=== PATIENT | female | born 1960 | race Caucasian/White ===

== ENCOUNTER 2017-02-26 06:22 | Observation (INO) | payer OTHER ==
[~2017-02-26] VITALS: Ht 170.2 cm; Wt 103.0 kg
[~2017-02-26 06:22] MED LIST: CELE20TA PO; CYCL1TAB29 PO; IMIT100T PO; LEVO137T2 PO; ROPI1TAB72 PO; XANA1TAB2 PO
[2017-02-26] MEDS ORDERED: POVIDONE IODINE 5% (ANTISEPSIS KIT) 4 APPLICATIONS EACH NARE PRN (07:00)
[2017-02-26] MEDS ORDERED: INSULIN HUMAN REGULAR 1,000 UNITS/10 ML VIAL SQ PRN (07:00)
[2017-02-26] MEDS ORDERED: METOPROLOL TARTRATE 25 MG TAB PO PRN (07:00)
[2017-02-26] MEDS ORDERED: SODIUM CHLORID 0.9% 500 ML IV PRN (07:00)
[2017-02-26] MEDS ORDERED: SODIUM CHLOR 0.9% 1000 ML INJ 1,000 ML IV SCH (07:00)
[2017-02-26] MEDS ORDERED: CHLORHEXIDINE GLUCONATE 2 % 1 PACK (2 CLOTHS) TOPICAL PRN (07:00)
[2017-02-26] MEDS ORDERED: LACTATED RINGER'S 1000 ML IV PRN (07:00)
[2017-02-26 07:01] VITALS: BP 122/78; PULSE 78; RESP 20; TEMP 98; O2SAT 100
[2017-02-26] MEDS: VANCOMYCIN HCL 1000 MG ON-CALL/NS 250 ML IV SCH ×4 (07:15→07:25)
[2017-02-26] MEDS ORDERED: THROMBIN (TOPICAL) 5,000 UNIT VIAL ONE (07:22)
[2017-02-26] MEDS ORDERED: GELFOAM SIZE 100 ONE (07:22)
[2017-02-26] MEDS ORDERED: MICROFIBRILLAR COLLAGEN HEMOSTAT 70 X 35 MM BANDAGE ONE (07:22)
[2017-02-26] MEDS ORDERED: ceFAZolin 2 GM PREMIX 50 ML ONE (07:22)
[2017-02-26] MEDS ORDERED: GENTAMICIN SULFATE 80 MG/2 ML VIAL ONE (07:23)
[2017-02-26] MEDS ORDERED: ACETAMINOPHEN 1000 MG/100 ML VIAL IV ONE (08:05)
[2017-02-26] MEDS ORDERED: ARTIFICIAL TEARS OPTH OINT 3.5 APPLIC/3.5 GM TUBO ONE (08:05)
[2017-02-26] MEDS ORDERED: FAMOTIDINE 20 MG/2 ML VIAL ONE (08:05)
[2017-02-26] MEDS ORDERED: fentaNYL CITRATE 250 MCG/5 ML AMP ONE (08:06)
[2017-02-26] MEDS ORDERED: MIDAZOLAM HCL 2 MG/2 ML VIAL ONE ×2 (08:06→08:32)
[2017-02-26] MEDS ORDERED: NEOSTIGMINE 3 MG/3 ML SYR IV ONE (12:00)
[2017-02-26] MEDS ORDERED: LACTATED RINGER'S 1000 ML INJ 1,000 ML IV ONE (12:00)
[2017-02-26] MEDS ORDERED: ONDANSETRON HCL 4 MG/2 ML VIAL IV PUSH ONE (12:00)
[2017-02-26] MEDS ORDERED: ePHEDrine/NS 25 MG/5 ML SYR IV ONE (12:00)
[2017-02-26] MEDS ORDERED: PROPOFOL 200 MG/20 ML AMP IV ONE (12:00)
[2017-02-26] MEDS ORDERED: DO NOT ADM ANY ANTICOAGULANT DRUGS PRN (12:15)
[2017-02-26] MEDS: NS + KCL 20 MEQ INJ 1,000 ML IV SCH ×2 (12:18→20:29)
[2017-02-26] MEDS ORDERED: HYDR-3535 PO (12:25)
[2017-02-26] MEDS ORDERED: SODIUM CHLORIDE 0.9% FLUSH 5 ML FLUSH IVF PRN (12:30)
[2017-02-26] MEDS ORDERED: MORPHINE SULFATE 4 MG/ML INJ IV PUSH PRN ×2 (12:30)
[2017-02-26] MEDS ORDERED: ACETAMINOPHEN/HYDROcodone 325 MG/10 MG TAB PO PRN (12:30)
[2017-02-26] MEDS ORDERED: LORazepam 2 MG/ML VIAL IVP PRN (12:30)
[2017-02-26] MEDS ORDERED: SUMAtriptan SUCCINATE 50 MG TAB PO PRN (12:30)
[2017-02-26] MEDS ORDERED: ACETAMINOPHEN 325 MG TAB PO PRN (12:30)
[2017-02-26] MEDS ORDERED: *HYDROmorphone PF 1 MG VIAL PERIprocedural Use ONLY ONE ×2 (12:52→13:07)
[2017-02-26] MEDS: DEXAMETHASONE SOD PHOS 4 MG/ML VIAL IV PUSH SCH ×3 (13:00→22:55)
--- NOTE | 2017-02-26 13:26 | PD.OP ---
Operative Report Date of Surgery: February 26, 2017 Preoperative Diagnosis: C3-4 cervical disk herniation Postoperative Diagnosis: C3-4 cervical disk herniation Procedure: C3-C4 Anterior cervical discectomy and arhtoplasty with Mobi C Anesthesia: General Surgeon: Jj Hernandez Highway Safety Engineer(s): Orin Birch Operation and Findings: INDICATIONS FOR THE SURGERY Ms Vee is a 56 year-old female who presented with intractable neck pain and clinical evidence of C7 cervical radiculopathy. She was found to have focal stenosis with a C6-7 causing significant mass effect on the nerve roots. She failed multiple modalities of nonsurgical treatment including physical therapy, analgesics, antiinflammatories, and pain management with multiple epidural steroid injections. The severity of her pain and symptoms were affecting her quality of life. An anterior cervical discectomy and arthroplasty were indicated. The [id number] details of the surgical procedure, indications, alternatives, risks and potential complications were fully discussed with the patient. The patient fully understood. All his questions were answered. No guarantees were given. She voiced requesting the procedure and signed informed consents. She was offered the alternative of delaying the procedure and continuing with nonsurgical management. DETAILS OF THE SURGICAL PROCEDURE SURGICAL APPROACH A skin incision was made along the middle cervical crease on the left side with a #10 blade. The dissection was carried out through the platysma exposing the sternocleidomastoid muscle. The cervical spine was approached following the fascial layers of the neck, just medial to the anterior border of the sternocleidomastoid and carotid sheath by a combination of sharp and dull dissection. The omohyoid muscle was identified and carefully dissected laterally and the deep cervical fascia was carefully opened. The longus colli muscles were retracted to each side of the midline. A marker was placed at the C3-C4 disc space and a cross-table lateral x-ray performed with a C-arm. An AP xray was then obtained as well, and the midline of the disk space was defined. SURGICAL DECOMPRESSION In order to decompress the anterior surface of the spinal cord it was necessary to perform a microsurgical resection of the disk. At this point in the procedure the operating microscope was draped in the usual sterile fashion and brought to the field. The rest of the surgical procedure was performed using microdissection technique with the exception of the closure. Under the operative microscopic a self-retaining retractor was placed underneath the longus colli muscle. The annulus was incised with a #15 blade and microdiscectomy was then carefully carried out using angled curets and pituitary forceps. The patient had a large right disk extrusion which was producing mass affect on the exiting nerve root. This was carefully dissected with a nerve hock and resected with a think foot plate 2 mm Kerrison under high magnification. The posterior longitudinal ligament was then elevated with an angled curet and incised with a 15 bladed knife. A careful resection of the posterior longitudinal ligament was carried out using a thin footplate 2 mm Kerrison. Extruded disk fragments were causing mechanical compression over the exiting C6 nerve root were carefully dissected. The decompression was then carried out laterally, and a bilateral foraminotomy was performed with a 2 mm thin foot Kerrison. The epidural space was the systematically assessed with a nerve hook in search for disk fragments of scar tissue. An excellent decompression was achieved in both, the dural sac and bilateral exiting nerve roots. The incision was then irrigated with a large amount of antibiotic solution INTERBODY ARTHROPLASTY In order to avoid collapse of the disk space which would result in bilateral foraminal stenosis, and in order to maintain disk space height and function minimally development of adjacent level degeneration, it was necessary to place an interbody device. At this point of the procedure, gentle distraction was applied. The size of the interbody device was then assessed using a trial, and a cross table xray was done for confirmation of appropriate size and position of the device. Then the disk space was irrigated with antibiotic solution, and a 15mm by 6mm Mobi C artificial disk was carefully impacted into the disc space C3-C4. An excellent position of the device was achieved. This was confirmed anatomically by feeling the space posterior to the implant and distance to the anterior surface of the dural sac. Radiological confirmation of the position was performed with a cross table AP and lateral X-ray views, performed with the C-arm. COMPLETION OF THE SURGICAL PROCEDURE Once that each interbody device was in an appropriate position, the distraction was discontinued. The position of the device as well as alignment of the spine were assessed anatomically by direct visualization, and radiologically by performing an AP and lateral X-ray of the cervical spine with the C-arm. The position of the implant was excellent. The incision was irrigated with several liters of antibiotic solution. Hemostasis was achieved with a bipolar. A 7 mm Micky-Gonzalez drain was left in the prevertebral space and externalized through a separate stab incision. The incision was then closed in layers. 3-0 Vicryl with interrupted sutures was used to close the platysma and subcutaneous tissue. The skin was closed with 4- 0 running subcuticular Vicryl and Dermabond was applied to the skin. The drain was secured with a 3-0 nylon. At the end of the procedure the sponge, needle and instrument counts were all correct. The estimated blood loss was less than 30 cc. No blood transfusion was given. No intraoperative complications occurred. The patient received prophylactic antibiotics. The patient was then extubated and transferred to the recovery room in stable condition. Jj Hernandez MD February 26, 2017 13:26
[2017-02-26 14:20] VITALS: BP 120/67; PULSE 95; RESP 16; TEMP 96; O2SAT 97
[2017-02-26] MEDS: CYCLOBENZAPRINE HCL 10 MG TAB PO SCH ×2 (14:25→17:48)
[2017-02-26] MEDS: ACETAMINOPHEN/HYDROcodone 325 MG/10 MG TAB PO PRN ×2 (14:26→17:49)
[2017-02-26] MEDS: ceFAZolin 2 GM PREMIX 50 ML IV SCH (15:45)
[2017-02-26 16:00] VITALS: BP 126/70; PULSE 91; RESP 18; TEMP 96.4; O2SAT 96
--- NOTE | 2017-02-26 17:08 | RADRPT ---
EXAM DATE/TIME: 02/26/2017 09:51 [facility] COMPARISON: No previous studies available for comparison. INDICATIONS : Artificial disk C3,C4. MEDICAL HISTORY : None. SURGICAL HISTORY : Fusion, cervical. ENCOUNTER: Initial ACUITY: 1 day PAIN SCORE: Non-responsive. LOCATION: Cervical spine. FINDINGS: Artificial disc is present at C3-C4 in anatomic alignment. There is previous fusion at C5-C6. CONCLUSION: 1. Postsurgical changes as above. Ellis Bunn MD on February 26, 2017 at 17:03 Board Certified Radiologist. This report was verified electronically.
[2017-02-26] MEDS: DOCUSATE SODIUM 100 MG CAP PO SCH (20:26)
[2017-02-26] MEDS: ONDANSETRON HCL 4 MG/2 ML VIAL IV PUSH PRN (20:27)
[2017-02-26] MEDS: HYDROmorphone HCL PF 1 MG/ML VIAL IV PRN ×2 (20:27→22:54)
[2017-02-26 20:50] VITALS: BP 117/83; PULSE 64; RESP 17; TEMP 97; O2SAT 94
[2017-02-26] MEDS ORDERED: ALPRAZolam 1 MG TAB PO SCH (21:00)
[2017-02-26] MEDS: SODIUM CHLORIDE 0.9% FLUSH 5 ML FLUSH IVF SCH (21:00)
[2017-02-26 23:50] VITALS: BP 117/77; PULSE 76; RESP 16; TEMP 96.6; O2SAT 92
[2017-02-27] MEDS: HYDROmorphone HCL PF 1 MG/ML VIAL IV PRN ×3 (00:57→06:10)
[2017-02-27] MEDS: ceFAZolin 2 GM PREMIX 50 ML IV SCH ×2 (00:57→08:56)
[2017-02-27] MEDS: ONDANSETRON HCL 4 MG/2 ML VIAL IV PUSH PRN (03:32)
[2017-02-27 04:30] VITALS: BP 130/87; PULSE 75; RESP 16; TEMP 98.1; O2SAT 98
[2017-02-27] MEDS ORDERED: LEVOTHYROXINE SODIUM 112 MCG TAB PO SCH (06:00)
[2017-02-27] MEDS ORDERED: LEVOTHYROXINE SODIUM 25 MCG TAB PO SCH (06:00)
[2017-02-27] MEDS: DEXAMETHASONE SOD PHOS 4 MG/ML VIAL IV PUSH SCH ×2 (06:10→12:18)
[2017-02-27 08:00] VITALS: BP 121/79; PULSE 90; RESP 18; TEMP 97.6; O2SAT 94
[2017-02-27] MEDS: DOCUSATE SODIUM 100 MG CAP PO SCH (08:55)
[2017-02-27] MEDS: ACETAMINOPHEN/HYDROcodone 325 MG/10 MG TAB PO PRN (08:55)
[2017-02-27] MEDS: CYCLOBENZAPRINE HCL 10 MG TAB PO SCH ×2 (08:56→12:18)
[2017-02-27] MEDS: SODIUM CHLORIDE 0.9% FLUSH 5 ML FLUSH IVF SCH (08:57)
[2017-02-27] MEDS: NS + KCL 20 MEQ INJ 1,000 ML IV SCH (08:58)
[2017-02-27] MEDS ORDERED: NON-FORMULARY DRUG (Levothyroxine 137 MCG) PO SCH (09:00)
[2017-02-27] MEDS ORDERED: SUMAtriptan SUCCINATE 50 MG TAB PO ONE (09:00)
[2017-02-27] MEDS ORDERED: PANTOPRAZOLE SOD 40 MG DELAYED RELEASE TAB PO SCH (09:00)
[2017-02-27] MEDS ORDERED: CITALOPRAM HYDROBROMIDE 20 MG TAB PO SCH (09:00)
--- NOTE | 2017-02-27 09:29 | HHI.DS ---
Discharge Summary Admission Date February 26, 2017 at 12:21 Discharge Date: February 27, 2017 Admitting Diagnosis hnp (1) Status post cervical arthrodesis ICD Code: Z98.1 Procedures arthroplasty Brief History elective arthroplasty, no complications Hospital Course Pt recovered without complications Pt Condition on Discharge: Good Discharge Disposition: Discharge Home Discharge Instructions DIET: Follow Instructions for: As Tolerated, No Restrictions Speech Therapy-Diet Recommenda: Mechanical Soft ADDITIONAL Diet Instructions: no ACTIVITIES You can perform: Weight Bearing As Ajay Activities to Avoid: Lifting/Bending Jj Hernandez MD February 27, 2017 09:29
--- NOTE | 2017-02-27 09:31 | HHI.NSPN ---
Note Status Status: Progress Note Interval History Diagnosis ARthroplasty Interval History 02/27. Doing well, S?P arthroplasty. doing well Labs, Micro, & Vital Signs Results Date Time Temp Pulse Resp B/P Pulse Ox O2 Delivery O2 Flow Rate FiO2 02/27/17 04:30 98.1 75 16 130/87 98 02/27/17 04:00 Nasal Cannula 2.00 02/27/17 00:00 Nasal Cannula 2.00 02/26/17 23:50 96.6 76 16 117/77 92 02/26/17 20:50 97.0 64 17 117/83 94 02/26/17 20:00 Nasal Cannula 2.00 02/26/17 16:00 96.4 91 18 126/70 96 02/26/17 14:20 96.0 95 16 120/67 97 02/26/17 14:10 Nasal Cannula 2.00 02/26/17 13:52 97.7 92 20 143/76 98 Nasal Cannula 2 02/26/17 13:45 92 20 143/76 98 Nasal Cannula 2 02/26/17 13:30 89 20 146/80 98 Nasal Cannula 2 02/26/17 13:15 86 20 143/79 99 Nasal Cannula 2 02/26/17 13:00 92 20 143/82 99 Nasal Cannula 2 02/26/17 12:45 87 20 152/85 99 Nasal Cannula 2 02/26/17 12:30 87 20 153/87 99 Nasal Cannula 2 02/26/17 12:15 88 20 152/85 99 Nasal Cannula 2 02/26/17 11:56 98.1 94 20 145/87 98 Nasal Cannula 2 02/27/17 07:00 Intake Total 4210 ml Output Total 1320 ml Balance 2890 ml Constitutional Vital Signs Date Time Temp Pulse Resp B/P Pulse Ox O2 Delivery O2 Flow Rate FiO2 02/27/17 04:30 98.1 75 16 130/87 98 02/27/17 04:00 Nasal Cannula 2.00 02/27/17 00:00 Nasal Cannula 2.00 02/26/17 23:50 96.6 76 16 117/77 92 02/26/17 20:50 97.0 64 17 117/83 94 02/26/17 20:00 Nasal Cannula 2.00 02/26/17 16:00 96.4 91 18 126/70 96 02/26/17 14:20 96.0 95 16 120/67 97 02/26/17 14:10 Nasal Cannula 2.00 02/26/17 13:52 97.7 92 20 143/76 98 Nasal Cannula 2 02/26/17 13:45 92 20 143/76 98 Nasal Cannula 2 02/26/17 13:30 89 20 146/80 98 Nasal Cannula 2 02/26/17 13:15 86 20 143/79 99 Nasal Cannula 2 02/26/17 13:00 92 20 143/82 99 Nasal Cannula 2 02/26/17 12:45 87 20 152/85 99 Nasal Cannula 2 02/26/17 12:30 87 20 153/87 99 Nasal Cannula 2 02/26/17 12:15 88 20 152/85 99 Nasal Cannula 2 02/26/17 11:56 98.1 94 20 145/87 98 Nasal Cannula 2 02/27/17 07:00 Intake Total 4210 ml Output Total 1320 ml Balance 2890 ml Review of Systems/Exam Exam She is alert, awake and oriented to time, place and person. Speech is fluent. Cranial nerve examination: pupils to be equal, round and reactive to light. Extra-ocular movements are intact. Facial motor and sensory function are normal and symmetrical. Gross hearing appears intact. Sternocleidomastoid and trapezius muscles are symmetrical. Other cranial nerves are intact. Neck is soft on [place] collar Muscle strength is normal in all muscle groups of both upper and lower extremities. Sensory examination is intact to light touch and pin prick in both the upper and lower extremities. Deep tendon reflexes are symmetrical in both upper and lower extremities. There is a bilateral plantar flexion response. Cerebellar examination is unremarkable, without deficits. Medications Current Medications Current Medications Lactated Ringer's 1,000 ml @ 30 mls/hr Q24H PRN IV SEE LABEL COMMENTS Last administered on 02/26/17t 07:07; Start 02/26/17 at 07:00; Stop 02/26/17 at 12:31 ; Status DC Sodium Chloride (NS 500 ml Inj) 500 ml @ 30 mls/hr [id number] PRN IV SEE LABEL COMMENTS; Start 02/26/17 at 07:00; Stop 02/26/17 at 12:31; Status DC Metoprolol Tartrate (Lopressor) 25 mg CDL INSTRUCTOR PRN PO SEE LABEL COMMENTS; Start 02/26/17 at 07:00; Stop 02/27/17 at 14:19; Status DC Povidone Iodine (Betadine 5% Antisepsis Kit) 1 applic CDL INSTRUCTOR PRN EACH NARE SEE LABEL COMMENTS Last administered on 02/26/17 07:07; Start 02/26/17 at 07:00 ; Stop 02/27/17 at 14:19; Status DC Chlorhexidine Gluconate (Chlorhexidine 2% Cloth) 3 pack CDL INSTRUCTOR PRN TOPICAL SEE LABEL COMMENTS; Start 02/26/17 at 07:00; Stop 02/27/17 at 14:19; Status DC Insulin Human Regular See Protocol Table ... CDL INSTRUCTOR PRN SQ SEE PROTOCOL TABLE ; Start 02/26/17 at 07:00; Stop 02/27/17 at 14:19; Status DC Sodium Chloride 1,000 ml @ 30 mls/hr Q24H IV ; Start 02/26/17 at 07:00; Stop at 12:31; Status DC Vancomycin HCl/ Sodium Chloride (Vancomycin Inj/ NS 250 ml Inj) 250 ml @ 250 mls/hr CDL INSTRUCTOR IV Last administered on 02/26/17 07:15; Start 02/26/17 at 07: 00; Stop 02/26/17 at 12:33; Status DC Microfibriller Collagen Hemostat (Avitene Bandage) 1 bandage STK-MED ONCE .ROUTE Last administered on 02/26/17 10:25; Start 02/26/17 at 07:22; Stop at 07:23; Status DC Thrombin 12862 units 10,000 units STK-MED ONCE .ROUTE Last administered on 02/26 10:25; Start 02/26/17 at 07:22; Stop 02/26/17 at 07:23; Status DC Cefazolin Sodium/ Dextrose (Ancef 2 Gm Premix) 50 ml @ As Directed STK-MED ONCE .ROUTE Last administered on 02/26/17 09:14; Start 02/26/17 at 07:22; Stop at 07:23; Status DC Gelatin (Gelfoam 100 Top) 1 foam STK-MED ONCE .ROUTE Last administered on 10:24; Start 02/26/17 at 07:22; Stop 02/26/17 at 07:23; Status DC Gentamicin Sulfate (Gentamicin Inj) 240 mg STK-MED ONCE .ROUTE Last administered on 02/26/17 10:24; Start 02/26/17 at 07:23; Stop 02/26/17 at 07:24 ; Status DC Acetaminophen (Ofirmev Inj) 1,000 mg STK-MED ONCE IV ; Start 02/26/17 at 08:05; Stop 02/26/17 at 08:06; Status DC Artificial Tears (Lacrilube Opht Oint) 3.5 applic STK-MED ONCE .ROUTE ; Start at 08:05; Stop 02/26/17 at 08:06; Status DC Famotidine (Pepcid Inj) 20 mg STK-MED ONCE .ROUTE ; Start 02/26/17 at 08:05; Stop 02/26/17 at 08:06; Status DC Midazolam HCl (Versed Inj) 4 mg STK-MED ONCE .ROUTE ; Start 02/26/17 at 08:06; Stop 02/26/17 at 08:07; Status DC Fentanyl Citrate (fentaNYL INJ) 500 mcg STK-MED ONCE .ROUTE ; Start 02/26/17 at 08:06; Stop 02/26/17 at 08:07; Status DC Midazolam HCl (Versed Inj) 2 mg STK-MED ONCE .ROUTE ; Start 02/26/17 at 08:32; Stop 02/26/17 at 08:33; Status DC Miscellaneous Information ALL NURSING DEPARTME... UNSCH PRN .XX SEE LABEL COMMENTS; Start 02/26/17 at 12:15; Stop 02/27/17 at 12:14; Status DC Potassium Chloride/Sodium Chloride (NS + KCl 20 Meq Inj) 1,000 ml @ 100 mls/hr Q10H IV Last administered on 02/27/17 08:58; Start 02/26/17 at 12:18; Stop at 14:19; Status DC IV Flush (NS Flush) 2 ml UNSCH PRN IVF FLUSH AFTER USING IV ACCESS; Start 02/26 at 12:30; Stop 02/27/17 at 14:19; Status DC IV Flush 2 ml 2 ml BID IVF ; Start 02/26/17 at 21:00; Stop 02/27/17 at 14:19; Status DC Cefazolin Sodium/ Dextrose (Ancef 2 Gm Premix) 50 ml @ 100 mls/hr Q8H IV Last administered on 02/27/17 08:56; Start 02/26/17 at 17:00; Stop 02/27/17 at 09:29 ; Status DC Lorazepam (Ativan Inj) 1 mg Q1H PRN IVP anxiety/irritability; Start 02/26/17 at 12:30; Stop 02/27/17 at 14:19; Status DC Docusate Sodium (Colace) 100 mg BID PO Last administered on 02/27/17 08:55; Start 02/26/17 at 21:00; Stop 02/27/17 at 14:19; Status DC Pantoprazole Sodium (Protonix) 40 mg DAILY PO Last administered on 02/27/17 08 :55; Start 02/27/17 at 09:00; Stop 02/27/17 at 14:19; Status DC Acetaminophen/ Hydrocodone Bitart ([place] 10-325 Mg) 1 tab Q4H PRN PO PAIN SCALE 1 TO 5 Last administered on 02/27/17 08:55; Start 02/26/17 at 12:30; Stop 02/27/17 at 14:19; Status DC Acetaminophen/ Hydrocodone Bitart ([place] 10-325 Mg) 2 tab Q4H PRN PO PAIN SCALE 6 TO 10; Start 02/26/17 at 12:30; Stop 02/27/17 at 14:19; Status DC Morphine Sulfate (Morphine Inj) 2 mg Q2H PRN IV PUSH PAIN SCALE 1 TO 6; Start 02/26/17 at 12:30; Stop 02/27/17 at 14:19; Status DC Morphine Sulfate (Morphine Inj) 4 mg Q2H PRN IV PUSH PAIN SCALE 7 TO 10; Start 02/26/17 at 12:30; Stop 02/27/17 at 14:19; Status DC Acetaminophen (Tylenol) 650 mg Q4H PRN PO TEMPERATURE > 101.5 F; Start at 12:30; Stop 02/27/17 at 14:19; Status DC Dexamethasone Sodium Phosphate (Decadron Inj) 4 mg Q6HR IV PUSH Last administered on 02/27/17 12:18; Start 02/26/17 at 13:00; Stop 02/27/17 at 14:19 ; Status DC Alprazolam (Xanax) 1 mg HS PO Last administered on 02/26/17 20:27; Start 02/26 at 21:00; Stop 02/27/17 at 14:19; Status DC Citalopram Hydrobromide (CeleXA) 20 mg DAILY PO Last administered on 02/27/17 08:55; Start 02/27/17 at 09:00; Stop 02/27/17 at 14:19; Status DC Cyclobenzaprine HCl (Flexeril) 10 mg TID PO Last administered on 02/27/17 12: 18; Start 02/26/17 at 13:00; Stop 02/27/17 at 14:19; Status DC Ropinirole HCl (Requip) 1 mg QID PO Last administered on 02/27/17 12:18; Start 02/26/17 at 13:00; Stop 02/27/17 at 14:19; Status DC Sumatriptan Succinate (Imitrex) 100 mg ONCE PRN PO MIGRAINE HEADACHE; Start at 12:30; Stop 02/27/17 at 14:19; Status DC Non-Formulary Medication 137 mcg DAILY PO THY; Start 02/27/17 at 09:00; Status UNV Hydromorphone HCl (*DILAUDID PF INJ PERIprocedural ONLY) 1 mg STK-MED ONCE .ROUTE Last administered on 02/26/17 12:52; Start 02/26/17 at 12:52; Stop at 12:53; Status DC Levothyroxine Sodium (Synthroid) 112 mcg DAILY@06 PO Last administered on 06:08; Start 02/27/17 at 06:00; Stop 02/27/17 at 14:19; Status DC Levothyroxine Sodium (Synthroid) 25 mcg DAILY@06 PO Last administered on 06:08; Start 02/27/17 at 06:00; Stop 02/27/17 at 14:19; Status DC Hydromorphone HCl (*DILAUDID PF INJ PERIprocedural ONLY) 1 mg STK-MED ONCE .ROUTE Last administered on 02/26/17 13:07; Start 02/26/17 at 13:07; Stop at 13:08; Status DC Hydromorphone HCl (Dilaudid Pf Inj) 1 mg Q2H PRN IV PAIN Last administered on 06:10; Start 02/26/17 at 20:30; Stop 02/27/17 at 14:19; Status DC Ondansetron HCl (Zofran Inj) 4 mg Q6H PRN IV PUSH NAUSEA Last administered on 03:32; Start 02/26/17 at 20:30; Stop 02/27/17 at 14:19; Status DC Sumatriptan Succinate (Imitrex) 100 mg ONCE ONCE PO Last administered on 09:19; Start 02/27/17 at 09:00; Stop 02/27/17 at 09:03; Status DC Attending Statement She is doing well. No complications. No deficits. Will discharge home Jj Hernandez MD February 27, 2017 09:31
[2017-02-27 12:00] VITALS: BP 123/75; PULSE 89; RESP 18; TEMP 98.2; O2SAT 95
[2017-03-19] MEDS ORDERED: CYCL1TAB29 PO (12:25)
[2017-03-20] MEDS ORDERED: HYDR-3535 PO (14:52)
== END 2017-02-27 14:19 | disposition home or self-care (01) ==
LOC: HSDC 06:22 → HSDI 12:21 → N06B 14:34
PROVIDERS: ADMIT Neurological Surgery; ATTEND Neurological Surgery
DX: M50.10 Cervical disc disorder with radiculopathy, unspecified cervical region (principal); E03.9 Hypothyroidism, unspecified; F32.9 Major depressive disorder, single episode, unspecified; G25.81 Restless legs syndrome; Z88.0 Allergy status to penicillin; Z88.5 Allergy status to narcotic agent; Z88.1 Allergy status to other antibiotic agents
CPT/HCPCS: 22856; 72040; 76000; 94150; 97161; C1713; G0378; G8987; G8988; J0131; J0690; J1100; J1170; J1580; J2250; J2405; J2710; J3010; J3370; J3480; J7050; J7120; L0150; L0172

== ENCOUNTER 2017-12-04 04:07 | Emergency (ER) | payer OTHER ==
[~2017-12-04] VITALS: Ht 170.2 cm; Wt 100.0 kg
[~2017-12-04 04:07] MED LIST changes: +CYCL10TA PO; -CYCL1TAB29 PO; +HYDR-3535 PO; +ZANA4CAP PO
[2017-12-04 04:11] VITALS: BP 136/81; PULSE 69; RESP 18; TEMP 98; O2SAT 100
[2017-12-04] MEDS ORDERED: METH500T3 PO (04:30)
[2017-12-04] MEDS ORDERED: MELO7.5T27 PO (04:31)
[2017-12-04] MEDS ORDERED: ONDANSETRON HCL 4 MG/2 ML VIAL IV PUSH ONE (04:45)
[2017-12-04] MEDS ORDERED: HYDROmorphone HCL PF 1 MG/ML VIAL IV PUSH ONE (04:45)
[2017-12-04] MEDS ORDERED: SODIUM CHLORID 0.9% 500 ML INJ 500 ML IV ONE (04:45)
--- NOTE | 2017-12-04 04:52 | PD ---
HPI Chief Complaint: Back/ Neck Pain or Injury Time Seen by Provider: 04:36 Travel History International Travel<30 days: No Contact w/Intl Traveler<30days: No Traveled to known affect area: No History of Present Illness HPI The patient is a 57-year-old female who presents to the emergency department for low back pain. The patient states her back pain started 2 days ago, she thought she may have "pulled" her back. However, she tried to get up to go to the restroom earlier tonight and had difficulty walking. The pain is located lower aspect of the back, across the sacroiliac area radiating down the legs but stopping prior to the knee. She denies any weakness, numbness, or tingling of the lower extremities. She does have a history of herniated disc in the neck before with previous surgery by Dr. Hernandez. She does note mild urinary incontinence, however, this has been somewhat chronic is not acute. The patient's symptoms are moderate, there are no current alleviating or exacerbating factors. She does note a history of allergies to morphine with rash and states that Toradol has an interaction with her Requip, making her restless. Patient states she is able to take Demerol and Dilaudid for pain. PFSH Past Medical History Arthritis: Yes (BACK AND NECK) Blood Disorders: No Anxiety: Yes Depression: Yes ("MOOD SWINGS") Heart Rhythm Problems: No Cancer: No Cardiovascular Problems: No High Cholesterol: No Congestive Heart Failure: No Cerebrovascular Accident: No Diabetes: No Diminished Hearing: No Endocrine: Yes Gastrointestinal Disorders: Yes (GASTRIC BYPASS SX 2008) Glaucoma: No Genitourinary: No Hepatitis: No Hiatal Hernia: No Hypertension: No Immune Disorder: No Implanted Vascular Access Dvce: No Medical other: Yes Musculoskeletal: Yes (ARTHRITIS HIPS, LUMBAR SPINE, CERVICAL SPINE, FEET) Neurologic: Yes (NUMBNESS & BURNING ENTIRE RIGHT ARM INTO FINGERS INTERMITT) Psychiatric: Yes (DEPRESSION ) Reproductive: No Respiratory: No Seizures: No Thyroid Disease: Yes (HYPO) Tetanus Vaccination: < 5 Years Influenza Vaccination: Yes ?: Not Menopausal: Yes : 2 Para: 2 Tubal Ligation: Yes Past Surgical History Abdominal Surgery: Yes (GASTRIC BYPASS 2008) AICD: No Body Medical Devices: fussion to cervical Cardiac Surgery: No Ear Surgery: No Endocrine Surgery: No Eye Surgery: No Genitourinary Surgery: No Gynecologic Surgery: Yes (PARTIAL HYSTERECTOMY WITH CYSTOCELE & RECTOCELE 2009) Hysterectomy: Yes Joint Replacement: No Neurologic Surgery: Yes (01/28/15 C5-6, 6-7 fusion) Oral Surgery: Yes (WISDOM TEETH REMOVED) Pacemaker: No Thoracic Surgery: No Other Surgery: Yes (2014 C5-6, 6-7 fusion) Social History Alcohol Use: Yes (occasional) Tobacco Use: No Substance Use: No Allergies-Medications (Allergen,Severity, Reaction): Coded Allergies: ciprofloxacin (Unverified Allergy, Severe, UNKNOWN, 12/04/17) INCOMPATABLE WITH REQUIP penicillin G (Unverified Allergy, Severe, HIVES, 12/04/17) morphine (Unverified Allergy, Intermediate, Irritability/Anxiety, 12/04/17) Reported Meds & Prescriptions Reported Meds & Active Scripts Active Zanaflex (Tizanidine HCl) 4 Mg Cap 4 Mg PO TID Reported Meloxicam 7.5 Mg Tab 7.5 Mg PO DAILY Methocarbamol 500 Mg Tab 500 Mg PO HS Xanax (Alprazolam) 1 Mg Tab 1 Mg PO HS Celexa (Citalopram Hydrobromide) 20 Mg Tab 20 Mg PO DAILY Levothyroxine (Levothyroxine Sodium) 137 Mcg Tab 137 Mcg PO DAILY Requip (Ropinirole) 1 Mg Tab 1 Mg PO QID Imitrex (Sumatriptan Succinate) 100 Mg Tab 100 Mg PO ONCE PRN If a satisfactory response has not been obtained at 2 hours, a second dose may be administered Review of Systems Except as stated in HPI: all other systems reviewed are Neg General / Constitutional: No: Fever Cardiovascular: No: Chest Pain or Discomfort Respiratory: No: Shortness of Breath Gastrointestinal: No: Nausea, Vomiting Genitourinary: No: Dysuria Musculoskeletal: Positive: Pain, No: Weakness Neurologic: No: Paresthesia, Sensory Disturbance Physical Exam Narrative GENERAL: Awake, alert, pleasant 57-year-old female who appears her stated age and appears in moderate discomfort. SKIN: Focused skin assessment warm/dry. HEAD: Atraumatic. Normocephalic. EYES: No injection or drainage. Back: Tenderness of the sacroiliac bilaterally as well as mid lumbar spine. No obvious deformity. Pain elicited with rotation of the thorax. MUSCULOSKELETAL: No obvious deformities. No clubbing. No cyanosis. No edema. Plantar flexion bilaterals 5 over 5. Dorsi flexion is 5 out of 5. Extension of the knee is 5 out of 5. Flexion the hips is 5 out of 5 but exacerbates her pain. NEUROLOGICAL: Awake and alert. No obvious cranial nerve deficits. Motor grossly within normal limits. Normal speech. Sensation is intact to the lower extremities bilaterally. PSYCHIATRIC: Appropriate mood and affect; insight and judgment normal. Data Data Last Documented VS Vital Signs Date Time Temp Pulse Resp B/P (MAP) Pulse Ox O2 Delivery O2 Flow Rate FiO2 12/04/17 04:11 98.0 69 18 136/81 (99) 100 Orders Orders Dexamethasone Inj (Decadron Inj) (12/04/17 09:00) Ondansetron Inj (Zofran Inj) (12/04/17 04:45) Sodium Chlorid 0.9% 500 Ml Inj (Ns 500 M (12/04/17 04:45) Spine, Lumbar - Ltd (Ap & Lat) (12/04/17 ) Hydromorphone Pf Inj (Dilaudid Pf Inj) (12/04/17 05:15) Dexamethasone Inj (Decadron Inj) (12/04/17 05:15) MDM Medical Decision Making Medical Screen Exam Complete: Yes Emergency Medical Condition: Yes Medical Record Reviewed: Yes Interpretation(s) X-ray lumbar spine reveals moderate degenerative disc changes at the L5-S1 level. The study is otherwise unremarkable. Differential Diagnosis Differential diagnosis includes back pain, back strain, compression fracture, herniated disc, spinal stenosis, cauda equina syndrome, UTI, AAA. Narrative Course IV was established and the patient was administered Decadron, Dilaudid, and Zofran with IV fluids. Lumbar spine x-ray was ordered. X-ray reveals moderate degenerative disc changes at L5-S1 level, otherwise unremarkable. The patient was reevaluated, her symptoms have improved. Patient will be placed on Medrol Dosepak and Percocet. She is advised to stop Mobitz while on the Medrol Dosepak. Continue muscle relaxers as previously directed. Work excuse for 2 days. She is advised to follow-up with her primary physician. She will be provided a copy of her x-ray results at discharge. Diagnosis Primary Impression: Back pain Qualified Codes: M54.5 - Low back pain Patient Instructions: General Instructions, Narcotic given in the ED Additional Instructions: Please provide the patient a copy of her x-ray results at discharge. Work excuse for 2 days. Stop Mobic while on Medrol Dosepak. Continue muscle relaxers as previously directed. Return if symptoms worsen or progress. Med/Other Pt SpecificInfo: Prescription(s) given Scripts Oxycodone-Acetaminophen (Percocet) 5-325 mg Tab 1 TAB PO Q6H Y for PAIN, #15 TAB 0 Refills Prov: Martir Nava MD 12/04/17 Methylprednisolone Dosepak (Medrol Dosepak) 4 Mg Dspk 4 MG PO DIRECTED, #1 DSPK 0 Refills Per Pharmacist direction Prov: Martir Nava MD 12/04/17 Disposition: 01 DISCHARGE HOME Condition: Stable Martir Nava MD Dec 04, 2017 04:52
[2017-12-04] MEDS ORDERED: HYDROmorphone HCL PF 2 MG/ML VIAL IV PUSH ONE (05:15)
[2017-12-04] MEDS ORDERED: DEXAMETHASONE SOD PHOS 4 MG/ML VIAL IV PUSH ONE (05:15)
--- NOTE | 2017-12-04 05:31 | RADRPT ---
EXAM DATE/TIME: 12/04/2017 04:52 [place] COMPARISON: No previous studies available for comparison. INDICATIONS : Lower back pain from unknown injury. MEDICAL HISTORY : None. SURGICAL HISTORY : None. ENCOUNTER: Initial ACUITY: 1 day PAIN SCORE: 10/10 LOCATION: Bilateral lower back. FINDINGS: Two view examination was performed. There are five non-rib bearing vertebral bodies. The vertebral bodies are in normal alignment without evidence of subluxation or scoliosis. Degenerative disc change s are present at the L5-S1 level with disc space narrowing, sclerosis and mild spurring. The sacroili ac joints are symmetric and intact. The pedicles are intact. Bony mineralization is normal. No frac ture is identified. CONCLUSION: 1. Moderate degenerative disc change at the L5-S1 level. 2. The study is otherwise unremarkable. Soham Bush MD on December 04, 2017 at 5:29 Board Certified Radiologist. This report was verified electronically.
[2017-12-04] MEDS ORDERED: MEDR4PAK PO (05:40)
[2017-12-04] MEDS ORDERED: PERC5TAB12 PO (05:40)
[2017-12-04 05:47] VITALS: RESP 14
[2017-12-04 05:52] VITALS: BP 136/82
[2017-12-04] MEDS ORDERED: DEXAMETHASONE SOD PHOS 4 MG/ML VIAL IV PUSH SCH (09:00)
== END 2017-12-04 06:02 | disposition home or self-care (01) ==
LOC: PHED 04:07
DX: M54.5 Low back pain (principal); F32.9 Major depressive disorder, single episode, unspecified; M46.90 Unspecified inflammatory spondylopathy, site unspecified; Z98.84 Bariatric surgery status; Z88.5 Allergy status to narcotic agent; Z88.1 Allergy status to other antibiotic agents; Z88.0 Allergy status to penicillin
CPT/HCPCS: 72100; 96361; 96374; 96375; 99284; J1100; J1170; J2405; J7040